=== PATIENT | male | born 1965 | race African-American/Black ===

== ENCOUNTER 2017-08-03 15:37 | Emergency (ER) | payer OTHER ==
--- NOTE | 2017-08-03 16:11 | UC ---
Ear Complaint HPI - HPI Summary HPI Summary: Pt presents with right ear fullness and sinus symptoms for 3 days. He tells me that about 3 days ago he developed sinus pain/pressure/congestion and right ear fullness and feeling like it needs to "pop". He has not taken anything OTC for this. Denies fever, chills, SOB, headache, dizziness, chest pain, abdominal pain , N/V/D/C. - History of Current Complaint Chief Complaint: UCRespiratory Stated Complaint: EAR PAIN Time Seen by Provider: 08/03/17 16:10 Hx Obtained From: Patient Onset/Duration: Gradual Onset Severity Initially: Mild Severity Currently: Mild Pain Intensity: 6 Pain Scale Used: 0-10 Numeric - Allergies/Home Medications Allergies/Adverse Reactions: Allergies Allergy/AdvReac Type Severity Reaction Status Date / Time No Known Allergies Allergy Verified 08/03/17 15:57 PMH/Surg Hx/FS Hx/Imm Hx Previously Healthy: Yes - Surgical History Surgical History: None - Social History Occupation: Employed Full-time Lives: With Family Alcohol Use: Occasionally Substance Use Type: None Smoking Status (MU): Light Every Day Tobacco Smoker Review of Systems Constitutional: Negative Skin: Negative Eyes: Negative ENT: Ear Ache, Sinus Congestion, Sinus Pain/Tenderness Respiratory: Negative Cardiovascular: Negative Gastrointestinal: Negative Neurological: Negative Psychological: Negative All Other Systems Reviewed And Are Negative: Yes Physical Exam Triage Information Reviewed: Yes Appearance: Well-Appearing, Well-Nourished Vital Signs: Initial Vital Signs Temp 98.3 F 08/03/17 15:54 Pulse 92 08/03/17 15:54 Resp 12 08/03/17 15:54 BP 170/101 08/03/17 15:54 Pulse Ox 99 08/03/17 15:54 Vital Signs Reviewed: Yes Eyes: Positive: Conjunctiva Clear, Other: - EOMI. PERRLA.. Negative: Conjunctiva Inflamed, Discharge ENT: Positive: Hearing grossly normal, Pharynx normal, Nasal congestion, Nasal drainage, TMs normal, Sinus tenderness, Uvula midline. Negative: Pharyngeal erythema, TM bulging, TM dull, TM red, Tonsillar swelling, Tonsillar exudate Neck: Positive: Supple, No Lymphadenopathy, Other: - NTTP. FROM. Respiratory: Positive: Chest non-tender, Lungs clear, Normal breath sounds, No respiratory distress, No accessory muscle use Cardiovascular: Positive: RRR, No Murmur, Pulses Normal Neurological: Positive: Alert, Other: - A&Ox3. 3 word recall, remote, recent memory, ability to follow 2-step directions, and attention intact. CN II XII grossly intact. Motor: good muscle tone, strength 5/5 throughout. Finger-to- nose are intact. Gait with normal base. Romberg: maintains balance, no pronator drift. Sensory: intact throughout Normal speech. No facial drooping. Psychological: Positive: Age Appropriate Behavior Skin: Negative: rashes Ear Complaint Course/Dx - Course Course Of Treatment: Sinusitis - Amoxicillin for 10 days. His BP was elevated at today's visit - it had improved moderately on manual recheck (150/90). He has seen his PCP for this a few months ago and says they told him it wasn't high enough to do anything. He denies headaches, vision changes, dizziness, ataxia, weakness, numbness, tingling, slurred speech, ringing in his ears, or balance disturbances. I advised him to follow up with his PCP within the next 4 weeks for recheck and potential treatment. If he develops any of the symptoms above, he should call 911 or go to the ED. - Differential Dx/Diagnosis Differential Diagnosis/HQI/PQRI: Otitis Externa, Otitis Media, Pharyngitis, URI Provider Diagnoses: Sinusitis Discharge - Discharge Plan Condition: Stable Disposition: HOME Prescriptions: Amoxicillin PO (*) [Amoxicillin 500 MG CAP*] 500 mg PO Q12H #20 cap Patient Education Materials: Sinusitis (ED) Referrals: No Primary Care Phys,NOPCP [Primary Care Provider] - Additional Instructions: If you develop a fever, SOB, chest pain, headache, dizziness, vision changes, new or worsening symptoms - please call your PCP or go to the ED. Your blood pressure was high at todays visit. Please see your primary provider within 4 weeks for recheck and re-evaluation.
[2017-08-03 16:49] VITALS: BP 150/90
== END 2017-08-03 17:00 | disposition home or self-care (01) ==
LOC: UCEAST 15:37
DX: J32.9 Chronic sinusitis, unspecified (principal); Z72.0 Tobacco use
CPT/HCPCS: 99212; G0463

== ENCOUNTER 2017-08-31 11:26 | Emergency (ER) | payer SELFPAY ==
[2017-08-31 11:40] VITALS: BP 168/94
--- NOTE | 2017-08-31 11:50 | UC ---
Respiratory Complaint HPI - HPI Summary HPI Summary: Pt presents with ongoing sinus and ear "pressure". I saw him on 08/03/17 for similar symptoms. At that time he had more sinus symptoms than he does at today' s visit. I placed him on amoxicillin, which he tells me he took for the 10 day course and experienced no relief of his symptoms. Today he complains of sinus pressure, b/l temporal headache, and b/l ear fullness with a dry cough. He has been taking sudafed for this, which he said does seem to help mildly - but his symptoms return and are constant. At his last visit, we discussed his elevated BP and need for a PCP; he was in the process of getting one, but lost his insurance at the first of this year. His BP is still elevated today. He denies fever, chills, change in vision, dizziness, SOB, chest pain, palpitations, CARBONE, abdominal pain, or n/v/d/c. - History of Current Complaint Chief Complaint: UCGeneralIllness Stated Complaint: RESP ISSUE Time Seen by Provider: 08/31/17 11:48 Hx Obtained From: Patient Onset/Duration: Gradual Onset Timing: Constant Severity Initially: Mild Severity Currently: Mild Pain Intensity: 4 Pain Scale Used: 0-10 Numeric - Allergies/Home Medications Allergies/Adverse Reactions: Allergies Allergy/AdvReac Type Severity Reaction Status Date / Time No Known Allergies Allergy Verified 08/31/17 11:40 Home Medications: Home Medications Pseudoephedrine TAB* [Sudafed TAB*] 2 tab PO DAILY 08/31/17 [History Confirmed 08/31/17] PMH/Surg Hx/FS Hx/Imm Hx - Surgical History Surgical History: None - Social History Occupation: Employed Full-time Lives: With Family Alcohol Use: Rare Substance Use Type: None Smoking Status (MU): Light Every Day Tobacco Smoker Amount Used/How Often: 2 cig/weekly Household Exposure Type: Cigarettes - Immunization History Most Recent Influenza Vaccination: NOT UTD Review of Systems Constitutional: Negative Skin: Negative Eyes: Negative ENT: Sinus Congestion, Other - Ear fullness Respiratory: Negative Cardiovascular: Negative Gastrointestinal: Negative Neurological: Headache - b/l temporal Psychological: Negative All Other Systems Reviewed And Are Negative: Yes Physical Exam Triage Information Reviewed: Yes Appearance: Well-Appearing, No Pain Distress, Well-Nourished Vital Signs: Initial Vital Signs Temp 99.1 F 08/31/17 11:27 Pulse 117 08/31/17 11:27 Resp 18 08/31/17 11:27 BP 168/94 08/31/17 11:27 Pulse Ox 100 08/31/17 11:27 Vital Signs Reviewed: Yes Eyes: Positive: Conjunctiva Clear, Other: - EOMI. PERRLA.. Negative: Conjunctiva Inflamed, Discharge ENT: Positive: Hearing grossly normal, Pharynx normal, TMs normal, Uvula midline. Negative: Pharyngeal erythema, Nasal congestion, Nasal drainage, TM bulging, TM dull, TM red, Tonsillar swelling, Tonsillar exudate, Muffled voice, Hoarse voice, Sinus tenderness Neck: Positive: Supple, Nontender, No Lymphadenopathy Respiratory: Positive: Chest non-tender, Lungs clear, Normal breath sounds, No respiratory distress, No accessory muscle use Cardiovascular: Positive: No Murmur, Pulses Normal, Tachycardia Abdomen Description: Positive: Nontender, No Organomegaly, Soft. Negative: Bruit, CVA Tenderness (R), CVA Tenderness (L), Distended, Guarding Bowel Sounds: Positive: Present Neurological: Positive: Alert, Other: - CNII-XII grossly intact. No focal deficits. Psychological: Positive: Age Appropriate Behavior Skin: Negative: rashes, significant lesion(s) UC Diagnostic Evaluation - Laboratory O2 Sat by Pulse Oximetry: 100 Respiratory Course/Dx - Course Course Of Treatment: I had a long discussion with the pt regarding his symptoms. I suspect this could be allergy or viral related, but cannot rule out the possibility of his elevated BP, cardiac, or intracranial pathology inducing the symptoms he is experiencing. I told him that I would like to perform an EKG and Head CT today and draw labwork - unfortunately, there are no antihypertensive medications available at our clinic. I told him that he also has the option of going to the Emergency Room for this workup and treatment of his BP. He declined to have any further testing/imaging performed due to a lack of insurance. For now, he wishes to try and treat his symptoms as if they are viral or allergy induced. He has a meeting this week with someone to help him get his insurance reinstated. I have also provided him the number and location of the [facility] [place] for further evaluation/treatment. Will try an rx for Flonase, claritin, and a neti pot. Advised to f/u with a PCP SANYA for further workup and treatment of his BP. Advised to stop taking sudafed. - Differential Dx/Diagnosis Provider Diagnoses: Ear fullness. Headache. Sinus pressure Discharge - Discharge Plan Condition: Stable Disposition: HOME Prescriptions: Fluticasone NASAL SPRAY 50MCG* [Flonase NASAL SPRAY 50MCG*] 2 spray BOTH NARES DAILY #1 btl LoraTADine TAB(NF) [Claritin 10 MG TAB(NF)] 10 mg PO DAILY #20 tab Meds/Orders/Equipment: Home Care: Equipment Location: None Selected Referrals: No Primary Care Phys,NOPCP [Primary Care Provider] - Additional Instructions: If you develop a fever, shortness of breath, chest pain, headache, dizziness, changes in vision, new or worsening symptoms - please call your PCP or go to the ED. Your blood pressure was high at todays visit. Please see your primary provider within 4 weeks for recheck and re-evaluation.
== END 2017-08-31 12:24 | disposition home or self-care (01) ==
LOC: UCEAST 11:26
DX: H93.8X9 Other specified disorders of ear, unspecified ear (principal); R51 Headache; J34.89 Other specified disorders of nose and nasal sinuses; F17.210 Nicotine dependence, cigarettes, uncomplicated
CPT/HCPCS: 99212; G0463

== ENCOUNTER 2018-05-28 17:11 | Emergency (ER) | payer SELFPAY ==
[2018-05-28 17:39] VITALS: BP 182/118
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
== END 2018-05-28 18:05 | disposition home or self-care (01) ==
LOC: UCEAST 17:11
DX: S16.1XXA Strain of muscle, fascia and tendon at neck level, initial encounter (principal); V44.6XXA Car passenger injured in collision with heavy transport vehicle or bus in traffic accident, initial encounter; Y92.410 Unspecified street and highway as the place of occurrence of the external cause; M62.838 Other muscle spasm; R03.0 Elevated blood-pressure reading, without diagnosis of hypertension; F17.210 Nicotine dependence, cigarettes, uncomplicated
CPT/HCPCS: 99213; G0463

== ENCOUNTER 2019-03-28 06:48 | Observation (INO) | payer OTHER ==
[2019-03-28 07:39] LABS: ABS Eosinophils 0.3 10^3/ul (0-0.6); ABS Lymphocytes 2.7 10^3/ul (1.0-4.8); ABS Neutrophils 7.2 10^3/ul (1.5-7.7); Eosinophil % 2.9 %; Hematocrit 44 % (42-52); Hemoglobin 15.1 g/dL (14.0-18.0); Lymphocyte % 23.6 %; Mean Corpuscular HGB Conc 34 g/dL (31-36); Mean Corpuscular Hemoglobin 32 pg (27-31); Mean Corpuscular Volume 92 fL (80-94); Mean Platelet Volume 7.2 fL (7.4-10.4); Platelet Count 305 10^3/uL (150-450); Red Blood Count 4.77 10^6 /uL (4.18-5.48); Red Cell Distribution Width 13 % (10-15); White Blood Count 11.2 10^3/uL (3.5-10.8)
[2019-03-28 07:45] LABS: INR 1.01 (0.82-1.09)
[2019-03-28 07:53] LABS: Albumin 4.1 g/dL (3.2-5.2); Albumin/Globulin Ratio 1.3 (1-3); BUN/Creatinine Ratio 13.9 (8-20); Calcium 8.8 mg/dL (8.6-10.3); EGFR African American 94.2 (>60); EGFR Non-African American 77.9 (>60); Globulin 3.1 g/dL (2-4); Potassium 3.9 mmol/L (3.5-5.0); Total Bilirubin 0.5 mg/dL (0.2-1.0); Total Protein 7.2 g/dL (6.4-8.9)
[2019-03-28 07:55] LABS: Troponin I 0.01 ng/mL (<0.04)
--- NOTE | 2019-03-28 08:46 | ED ---
Neurological HPI - HPI Summary HPI Summary: Patient is a 53-year-old male presenting to the ED with left-sided weakness and pain 2 days. He states on Thursday, 2 days ago, he was playing with his grandchildren when his "left side gave out on me." He states this has never happened to him before. Since that time, he states he has been unable to ambulate onto the left side due to weakness and pain. He specifically C/O pain to the hamstring, left sided medial ankle, heel and plantar surface of the foot 2 days and now is complaining of numbness and tingling throughout the left arm from the shoulder to the fingertips. He has been using a crutch since Thursday as he states he has been unable to bear weight. He denies any STEWARD, visual changes or disturbances, neck pain, jaw pain, R sided pain, CP or SOB. Denies any obvious neuro deficits including confusion or memory loss. PMhx includes: HTN (medication non-compliant) uses, "mild heart attack in 2007" Social hx: 3-4 cig per day smoker, alcohol use, obese family hx: Father heart dx at 73, mother of old age Medications: Aspirin daily No regular PCP - History of Current Complaint Chief Complaint: EDExtremityLower Stated Complaint: "LEFT SIDE GAVE OUT ON ME" PER PT Time Seen by Provider: 03/28/19 06:58 Hx Obtained From: Patient Onset/Duration: Sudden Onset Timing: Constant Onset Severity: Moderate Current Severity: Moderate Pain Intensity: 9 Pain Scale Used: 0-10 Numeric Character: Numbness/Tingling, Paresthesia, Motor Weakness Associated Signs and Symptoms: Positive: Unsteady Gait. Negative: Loss of Consciousness, Dizziness, Decreased Level of Consciousness, AMS, Impaired Speech - Allergy/Home Medications Allergies/Adverse Reactions: Allergies Allergy/AdvReac Type Severity Reaction Status Date / Time No Known Allergies Allergy Verified 03/28/19 06:51 PMH/Surg Hx/FS Hx/Imm Hx Previously Healthy: Yes - Immunization History Hx Pertussis Vaccination: No Immunizations Up to Date: Yes Infectious Disease History: No Infectious Disease History: Denies: Traveled Outside the [place] in Last 30 Days - Family History Known Family History: Positive: Hypertension - Social History Occupation: Employed Full-time Lives: With Family Alcohol Use: Occasionally Hx Substance Use: No Substance Use Type: Reports: None Hx Tobacco Use: Yes Smoking Status (MU): Light Every Day Tobacco Smoker Amount Used/How Often: 2 cig/weekly Review of Systems - ROS Summary Review of Systems Summary: Constitutional: The patient denies fever, STEWARD, sweats or chills. HEENT: Head: The patient denies headaches or dizziness. Eyes: The patient denies diplopia, blurry vision, eye pain, eye discharge, photophobia. Cardiovascular: The patient denies chest pain, palpitations, syncope, night cramps, or orthostasis. Respiratory: The patient denies cough, sputum production, hemoptysis, dyspnea, wheezing. Muscles: The patient endorses myalgia to hamstring, pain to plantar surface of foot. Joints: The patient denies arthralgia and/or arthritis. Neurologic: The patient denies headache, loss of consciousness, or seizure. Tingling sensation to the left upper extremity. Dermatologic: The patient denies hyperpigmentation, rash, or photosensitivity. No known tick bites per pt. Negative: Fever, Chills, Fatigue, Skin Diaphoresis Negative: Blurred Vision, Diplopia, Drainage Negative: Sore Throat, Ear Ache Negative: Palpitations, Chest Pain Negative: Shortness Of Breath, Cough Genitourinary: Negative Positive: no symptoms reported, see HPI Positive: Arthralgia, Myalgia. Negative: Decreased ROM, Edema Negative: Rash, Bruising Positive: Weakness, Paresthesia. Negative: Headache, Numbness, Syncope, Slurred Speech Psychological: Normal All Other Systems Reviewed And Are Negative: Yes Physical Exam - Summary Physical Exam Summary: Appearance: comfortable, pleasant, alert, obese, non-diaphoretic Skin: Soft dry skin, no lesions. Nailbeds pink with no cyanosis or clubbing. No petechia noted. Eyes: RUTH, EOMI, Conjunctiva pink with no redness or exudates. Mouth: Dentition without lesions. Moist mucosa Neck: Full range of motion. Palpable thyroid. Trachea at midline. No lymphadenopathy. Pulm: Chest symmetrical expansion. No deformities on posterior chest wall. Lungs clear to auscultation and percussion, without adventitious sounds. CV: No JVD. No deformities on anterior chest wall. Heart sounds. RRR. Normal S1 and single S2. No S3, S4, rubs, or murmurs. Carotids 2+ bilaterally without bruits. . GI: Bowel sounds WNL in all 4 quadrants. No pain on deep palpation of all 4 quadrants. Musculoskeletal: Flexion and extension of neck without limitations. ROM WNL in all extremities. No deformities noted. Pulses +2 bilaterally. Neuro: Motor strength is 5/5 in upper and 5/5 Right lower extremity/ 4/5 left lower extremity. Decreased sensation to the L lower extremity and L plantar surface of the foot. Stroke scale = 2. Psych: Logical, coherent Triage Information Reviewed: Yes Vital Signs On Initial Exam: Initial Vitals Temp Pulse Resp BP Pulse Ox 99.1 F 96 20 178/114 99 03/28/19 06:49 03/28/19 06:49 03/28/19 06:49 03/28/19 06:49 03/28/19 06:49 Vital Signs Reviewed: Yes Appearance: Positive: Well-Appearing, Well-Nourished Skin: Positive: Warm, Skin Color Reflects Adequate Perfusion Head/Face: Positive: Normal Head/Face Inspection Eyes: Positive: EOMI, RUTH, Conjunctiva Clear Neck: Positive: Supple, No Lymphadenopathy Respiratory/Lung Sounds: Positive: Clear to Auscultation, Breath Sounds Present Cardiovascular: Positive: RRR, Pulses are Symmetrical in both Upper and Lower Extremities Musculoskeletal: Positive: Pain @ - left sided pain to the hamstring, plantar surface of the foot and tingling to the L arm Neurological: Positive: Speech Normal Psychiatric: Positive: Affect/Mood Appropriate AVPU Assessment: Alert Diagnostics - Vital Signs Vital Signs Temp Pulse Resp BP Pulse Ox 03/28/19 07:38 86 144/84 99 03/28/19 07:00 98 03/28/19 06:49 99.1 F 96 20 178/114 99 - Laboratory Lab Results: Lab Results 03/28/19 03/28/19 03/28/19 Range/Units 07:27 07:27 07:27 WBC 11.2 H (3.5-10.8) 10^3/uL RBC 4.77 (4.18-5.48) 10^6 /uL Hgb 15.1 (14.0-18.0) g/dL Hct 44 (42-52) % MCV 92 (80-94) fL MCH 32 H (27-31) pg MCHC 34 (31-36) g/dL RDW 13 (10-15) % Plt Count 305 (150-450) 10^3/uL MPV 7.2 L (7.4-10.4) fL Neut % (Auto) 64.2 % Lymph % (Auto) 23.6 % [place] % (Auto) 8.9 % Eos % (Auto) 2.9 % Baso % (Auto) 0.4 % Absolute Neuts (auto) 7.2 (1.5-7.7) 10^3/ul Absolute Lymphs (auto) 2.7 (1.0-4.8) 10^3/ul Absolute Monos (auto) 1.0 H (0-0.8) 10^3/ul Absolute Eos (auto) 0.3 (0-0.6) 10^3/ul Absolute Basos (auto) 0.0 (0-0.2) 10^3/ul Absolute Nucleated RBC 0.0 10^3/ul Nucleated RBC % 0.0 INR (Anticoag Therapy) 1.01 (0.82-1.09) Sodium 136 (135-145) mmol/L Potassium 3.9 (3.5-5.0) mmol/L Chloride 106 (101-111) mmol/L Carbon Dioxide 23 (22-32) mmol/L Anion Gap 7 (2-11) mmol/L BUN 14 (6-24) mg/dL Creatinine 1.01 (0.67-1.17) mg/dL Est GFR ( Amer) 94.2 (>60) Est GFR (Non-Af Amer) 77.9 (>60) BUN/Creatinine Ratio 13.9 (8-20) Glucose 124 H (70-100) mg/dL Lactic Acid (0.5-2.0) mmol/L Calcium 8.8 (8.6-10.3) mg/dL Total Bilirubin 0.50 (0.2-1.0) mg/dL AST 20 (13-39) U/L ALT 21 (7-52) U/L Alkaline Phosphatase 84 (34-104) U/L Troponin I 0.01 (<0.04) ng/mL Total Protein 7.2 (6.4-8.9) g/dL Albumin 4.1 (3.2-5.2) g/dL Globulin 3.1 (2-4) g/dL Albumin/Globulin Ratio 1.3 (1-3) 03/28/19 Range/Units 07:27 WBC (3.5-10.8) 10^3/uL RBC (4.18-5.48) 10^6 /uL Hgb (14.0-18.0) g/dL Hct (42-52) % MCV (80-94) fL MCH (27-31) pg MCHC (31-36) g/dL RDW (10-15) % Plt Count (150-450) 10^3/uL MPV (7.4-10.4) fL Neut % (Auto) % Lymph % (Auto) % [place] % (Auto) % Eos % (Auto) % Baso % (Auto) % Absolute Neuts (auto) (1.5-7.7) 10^3/ul Absolute Lymphs (auto) (1.0-4.8) 10^3/ul Absolute Monos (auto) (0-0.8) 10^3/ul Absolute Eos (auto) (0-0.6) 10^3/ul Absolute Basos (auto) (0-0.2) 10^3/ul Absolute Nucleated RBC 10^3/ul Nucleated RBC % INR (Anticoag Therapy) (0.82-1.09) Sodium (135-145) mmol/L Potassium (3.5-5.0) mmol/L Chloride (101-111) mmol/L Carbon Dioxide (22-32) mmol/L Anion Gap (2-11) mmol/L BUN (6-24) mg/dL Creatinine (0.67-1.17) mg/dL Est GFR ( Amer) (>60) Est GFR (Non-Af Amer) (>60) BUN/Creatinine Ratio (8-20) Glucose (70-100) mg/dL Lactic Acid 1.5 (0.5-2.0) mmol/L Calcium (8.6-10.3) mg/dL Total Bilirubin (0.2-1.0) mg/dL AST (13-39) U/L ALT (7-52) U/L Alkaline Phosphatase (34-104) U/L Troponin I (<0.04) ng/mL Total Protein (6.4-8.9) g/dL Albumin (3.2-5.2) g/dL Globulin (2-4) g/dL Albumin/Globulin Ratio (1-3) Result Diagrams: 03/28/19 07:27 03/28/19 07:27 Lab Statement: Any lab studies that have been ordered have been reviewed, and results considered in the medical decision making process. NIH Scale - NIH Scale Level of Consciousness: Alert/Keenly Responsive Ask Patient the Month and His/Her Age: Both Correct Ask Pt to Open/Close Eyes and Video Editing Intern/Release Non-Paretic Hand: Both Correctly Best Gaze (Only Horizontal Eye Movement): Normal Visual Field Testing: No Visual Loss Motor Function - Right Arm: No Drift-Holds 10 Seconds Motor Function - Left Arm: No Drift-Holds 10 Seconds Motor Function - Right Leg: No Drift-Holds 10 Seconds Motor Function - Left Leg: Drifts LT 10 seconds Limb Ataxia-Must be out of Proportion to Weakness Present: Absent Sensory (Use Pinprick to Test Arms/Legs/Trunk/Face): Pinprick Less on Affected Best Language (Describe Picture, Name Items): No Aphasia Dysarthria (Read Several Words): Normal Extinction and Inattention: No Abnormality Re-Evaluation - Re-Evaluation First Eval Change: Unchanged - no change in sxs Second Eval Change: Worse - worse after NIH stroke scale assessment - pain to the hamstring Third Eval Change: Improved - improved with heat to the hamstring Course/Dx - Course Course Of Treatment: Patient presents with left-sided weakness and pain. On arrival into the ED, vital signs noted to be stable except for an elevated BP at 178/114. Patient arrives ambulating, however with a crutch favoring his right side. A recheck shows 144/84. No antihypertensive medications given. Patient appears well, nondiaphoretic and nontoxic in appearing. CT brain immediately obtained upon arrival as there is left-sided deficit noted, although this has been present [address] brain was read as negative, however Dr. Erwin recommends MRI. Discussed case with Dr. Ulrich, neuro who also recommends MRI. MRI w/wo contrast ordered. EKG shows T wave inversions in V5 and V6. ST elevations in V2 and V3. Depressions in lead 2. Last EKG on file from 2007. Patient continues to deny any CP. Trop 0.01. Labs unremarkable. Discussed EKG changes with Dr. Durand. Patient will be admitted for further workup of EKG changes as well as left-sided deficits. NIH = 2. Discussed all findings with patient who agrees to be admitted for further workup. - Differential Dx Differential Diagnoses Neuro: Positive: Other - muscle pain, paresthesia, acute ischemic stroke, NSTEMI - Diagnoses Provider Diagnoses: Left-sided muscle weakness, Paresthesia - Physician Notifications Discussed Care Of Patient With: Yossi Ulrich - Discussed case with Serg Rueda, Boni and Tima Instructed by Provider To: Admit As Inpatient Discharge - Sign-Out/Discharge Documenting (check all that apply): Patient Departure Patient Received Moderate/Deep Sedation with Procedure: No - Discharge Plan Condition: Fair Disposition: ADMITTED TO [facility] Referrals: Cristhian Lainez MD [Primary Care Provider] - - Billing Disposition and Condition Condition: FAIR Disposition: Admitted to [facility]
[2019-03-28 09:36] LABS: Urine Appearance Clear; Urine Bilirubin Negative (Negative); Urine Blood Negative (Negative); Urine Color Yellow; Urine Glucose Negative (Negative); Urine Ketones Negative (Negative); Urine Nitrite Negative (Negative); Urine Protein Negative (Negative); Urine Specific Gravity 1.021 (1.010-1.030); Urine Urobilinogen Negative (Negative)
[2019-03-28] MEDS ORDERED: HYDROcodone/ACETAMIN 5-325 MG* 1 TAB PO PRN (10:43)
--- NOTE | 2019-03-28 11:06 | ADMNOTE ---
Subjective Date of Service: 03/28/19 Interval History: ADMISSION HISTORY AND PHYSICAL EXAM: Allergies Allergy/AdvReac Type Severity Reaction Status Date / Time No Known Allergies Allergy Verified 03/28/19 06:51 Home Medications Medication Instructions Recorded Confirmed Type Cyclobenzaprine TAB* [Flexeril 10 mg PO DAILY PRN #7 tab 05/28/18 Rx TAB*] Ibuprofen 400 mg PO 05/28/18 History HPI: ON 03/26/19 while playing with his grandchild his L side got weak and he fell down and his L thigh hurt. It continued to hurt 03/26 and 03/27 and he came in today having to hop to get around. He hopped to the car and his drive him here. Family History: Findings - unremarkable. Social History: Findings - Smoker. No alcohol abuse. Lives with his who is his SDM. Works full-time. Past Medical History: Findings - wrist surgery 2003. Review of Systems - Measurements Intake and Output: Intake and Output Last 24 Hours 03/26/19 03/27/19 03/28/19 03/29/19 06:59 06:59 06:59 06:59 Weight 195 lb - Review of Systems Constitutional Symptoms: Negative: Weight Gain, Weight Loss, Weakness, Fatigue, Fever, Night Sweats, Unexplained Falls, Other Dermatology: Positive: Normal HEENT: Positive: Normal Eyes: Positive: Normal Thyroid: Positive: Normal Pulmonary: Positive: Normal Cardiology: Positive: Normal Gastroenterology: Positive: Normal Genital - Urinary: Positive: Normal Genitourinary - Male: Negative: Prostatism, Erectile Dysfunction, Family Hx of Prostate Cancer, Other Musculoskeletal: Positive: Other - Left thigh pain Endocrinology: Positive: Normal Hematologic/Lymphatic: Negative: Anemia, Easy Bruising, Hx Leukemia, Hx Lymphoma, Use of Anticoagulant, Use of Antiplatelet Drugs, Other Neurology: Positive: Normal Psychiatry: Positive: Normal Allergic/Immunologic: Negative: Hx Anaphylaxis, Hx Angioedema, Hx Environmental, Hx Seasonal, Asthma, Hx HIV, Immunocompromise, Swollen Glands LymphNodes, Other Objective Active Medications: Hydrocodone Bitart/Acetaminophen ([place] 5-325 Tab*) 1 tab PO Q4H PRN PRN Reason: PAIN - MODERATE Vital Signs - 8 hr 03/28/19 03/28/19 03/28/19 06:49 07:00 07:33 Temperature 99.1 F Pulse Rate 96 89 Respiratory 20 Rate Blood Pressure 178/114 164/101 (mmHg) O2 Sat by Pulse 99 98 98 Oximetry 03/28/19 03/28/19 03/28/19 07:38 07:43 08:00 Temperature Pulse Rate 86 89 71 Respiratory Rate Blood Pressure 144/84 (mmHg) O2 Sat by Pulse 99 98 96 Oximetry 03/28/19 03/28/19 03/28/19 08:03 08:33 09:00 Temperature Pulse Rate 93 72 71 Respiratory Rate Blood Pressure 171/101 154/120 (mmHg) O2 Sat by Pulse 98 97 97 Oximetry 03/28/19 03/28/19 03/28/19 09:03 09:33 10:00 Temperature Pulse Rate 89 65 65 Respiratory Rate Blood Pressure 171/119 168/101 (mmHg) O2 Sat by Pulse 98 99 98 Oximetry 03/28/19 03/28/19 03/28/19 10:03 10:33 10:55 Temperature Pulse Rate 68 81 Respiratory Rate Blood Pressure 159/113 182/113 164/106 (mmHg) O2 Sat by Pulse 98 97 Oximetry Oxygen Devices in Use Now: None Appearance: Alert, supine on Ed stretcher. Looks comfortable. Eyes: No Scleral Icterus Neck: NL Appearance and Movements; NL JVP, No Thyroid Enlargement, Masses Respiratory: Symmetrical Chest Expansion and Respiratory Effort, Clear to Auscultation, Clear to Percussion Cardiovascular: NL Sounds; No Murmurs; No JVD, RRR, No Edema, - Extremities: No Edema, No Clubbing, Cyanosis, - Skin: No Rash or Ulcers, No Nodules or Sclerosis, - Neurological: Alert and Oriented x 3, NL Sensation - ? 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 Can elevate both legs off bed well. L foot strong, ? limited by pain in thigh. Result Diagrams: 03/28/19 07:27 03/28/19 07:27 Additional Lab and Data: Lab Results 03/28/19 03/28/19 03/28/19 Range/Units 07:27 07:27 07:27 WBC 11.2 H (3.5-10.8) 10^3/uL RBC 4.77 (4.18-5.48) 10^6 /uL Hgb 15.1 (14.0-18.0) g/dL Hct 44 (42-52) % MCV 92 (80-94) fL MCH 32 H (27-31) pg MCHC 34 (31-36) g/dL RDW 13 (10-15) % Plt Count 305 (150-450) 10^3/uL MPV 7.2 L (7.4-10.4) fL Neut % (Auto) 64.2 % Lymph % (Auto) 23.6 % [place] % (Auto) 8.9 % Eos % (Auto) 2.9 % Baso % (Auto) 0.4 % Absolute Neuts (auto) 7.2 (1.5-7.7) 10^3/ul Absolute Lymphs (auto) 2.7 (1.0-4.8) 10^3/ul Absolute Monos (auto) 1.0 H (0-0.8) 10^3/ul Absolute Eos (auto) 0.3 (0-0.6) 10^3/ul Absolute Basos (auto) 0.0 (0-0.2) 10^3/ul Absolute Nucleated RBC 0.0 10^3/ul Nucleated RBC % 0.0 INR (Anticoag Therapy) 1.01 (0.82-1.09) Sodium 136 (135-145) mmol/L Potassium 3.9 (3.5-5.0) mmol/L Chloride 106 (101-111) mmol/L Carbon Dioxide 23 (22-32) mmol/L Anion Gap 7 (2-11) mmol/L BUN 14 (6-24) mg/dL Creatinine 1.01 (0.67-1.17) mg/dL Est GFR ( Amer) 94.2 (>60) Est GFR (Non-Af Amer) 77.9 (>60) BUN/Creatinine Ratio 13.9 (8-20) Glucose 124 H (70-100) mg/dL Lactic Acid (0.5-2.0) mmol/L Calcium 8.8 (8.6-10.3) mg/dL Total Bilirubin 0.50 (0.2-1.0) mg/dL AST 20 (13-39) U/L ALT 21 (7-52) U/L Alkaline Phosphatase 84 (34-104) U/L Troponin I 0.01 (<0.04) ng/mL Total Protein 7.2 (6.4-8.9) g/dL Albumin 4.1 (3.2-5.2) g/dL Globulin 3.1 (2-4) g/dL Albumin/Globulin Ratio 1.3 (1-3) 03/28/19 Range/Units 07:27 WBC (3.5-10.8) 10^3/uL RBC (4.18-5.48) 10^6 /uL Hgb (14.0-18.0) g/dL Hct (42-52) % MCV (80-94) fL MCH (27-31) pg MCHC (31-36) g/dL RDW (10-15) % Plt Count (150-450) 10^3/uL MPV (7.4-10.4) fL Neut % (Auto) % Lymph % (Auto) % [place] % (Auto) % Eos % (Auto) % Baso % (Auto) % Absolute Neuts (auto) (1.5-7.7) 10^3/ul Absolute Lymphs (auto) (1.0-4.8) 10^3/ul Absolute Monos (auto) (0-0.8) 10^3/ul Absolute Eos (auto) (0-0.6) 10^3/ul Absolute Basos (auto) (0-0.2) 10^3/ul Absolute Nucleated RBC 10^3/ul Nucleated RBC % INR (Anticoag Therapy) (0.82-1.09) Sodium (135-145) mmol/L Potassium (3.5-5.0) mmol/L Chloride (101-111) mmol/L Carbon Dioxide (22-32) mmol/L Anion Gap (2-11) mmol/L BUN (6-24) mg/dL Creatinine (0.67-1.17) mg/dL Est GFR ( Amer) (>60) Est GFR (Non-Af Amer) (>60) BUN/Creatinine Ratio (8-20) Glucose (70-100) mg/dL Lactic Acid 1.5 (0.5-2.0) mmol/L Calcium (8.6-10.3) mg/dL Total Bilirubin (0.2-1.0) mg/dL AST (13-39) U/L ALT (7-52) U/L Alkaline Phosphatase (34-104) U/L Troponin I (<0.04) ng/mL Total Protein (6.4-8.9) g/dL Albumin (3.2-5.2) g/dL Globulin (2-4) g/dL Albumin/Globulin Ratio (1-3) Assess/Plan/Problems-Billing Assessment: - Patient Problems (1) Left hemiparesis Current Visit: Yes Status: Acute Code(s): G81.94 - HEMIPLEGIA, UNSPECIFIED AFFECTING LEFT NONDOMINANT SIDE SNOMED Code(s): 296656243 Comment: Difficult to separate from his thigh pain. MRI brain, hip and L femur X-rays pending. Neuro consult requested. (2) Tobacco abuse Current Visit: Yes Status: Acute Code(s): Z72.0 - TOBACCO USE SNOMED Code( s): 669761125 Comment: Patient states he smokes 2 cigarettes per day. Pt advised to quit smoking and avoid second hand smoke. He declined NRT.
[2019-03-28] MEDS: tiZANidine TAB* 2 MG PO PRN (12:47)
--- NOTE | 2019-03-28 16:06 | CONS ---
CONSULTATION REPORT: DATE OF CONSULT: 03/28/19 PATIENT OF: Dr. Alfred and Dr. Lainez. HISTORY OF PRESENT ILLNESS: This is a 53-year-old right-handed man who 2 days ago while playing with his grandchild had sudden weakness in the left arm and leg and he collapsed with this. He said he had lost the power in both arm and leg, but without any headache, visual symptoms, numbness, speech problems, or any other symptoms. He says that the weakness persisted up until yesterday, but then it resolved. He said his walking was normal other than his left thigh pain. He is in good general health. When he came into the ER, he had pain of 9/10 in his left leg. PAST MEDICAL HISTORY: He does have hypertension and he is noncompliant and he had a mild heart attack in 2007. MEDICATIONS: 1. His only medicine at home is his cyclobenzaprine that he takes on an as- needed basis. 2. He is also on an aspirin daily. ALLERGIES: He is allergic to no meds. FAMILY HISTORY: His father with heart disease at 73. Mom of old age. SOCIAL HISTORY: He smokes 3 to 4 cigarettes per day. There is some alcohol use and obesity. REVIEW OF SYSTEMS: Negative in all 14 spheres other than HPI. PHYSICAL EXAM: Temperature 97.7, pulse 75, respirations 16, blood pressure 152/ 93. He was sleeping when I came in, but he was alert and oriented with normal speech and comprehension. Cranial nerves II through XII were intact with symmetric facies. No visual deficits. Fundi showed sharp discs. Motor exam revealed normal tone and strength. No pronator drift. He was somewhat limited in testing his left leg because of pain, but he had 5/5 hip flexion and good plantarflexion and dorsiflexion. He had muscle spasms in his left biceps femoris, and when I got him to stand, he could not bear weight because of pain behind his left leg. Reflexes were 1 and equal. Toes were equivocal to downgoing. Chest: Clear. Cardiovascular: Regular rate and rhythm. Abdomen: Soft with positive bowel sounds. DIAGNOSTIC STUDIES/LAB DATA: His CT scan was with no acute findings and was within normal limits. I reviewed this study. His labs include white count of 11.2, otherwise normal CBC. Normal INR. CMP normal other than glucose of 124. UA was negative. IMPRESSION AND PLAN: Salomon's acute problems related to his left leg pain that due to an injury he sustained in a fall; however, what he says is that he had significant weakness for about a day that precipitated the fall. That weakness is in his left arm and leg, it is unclear whether his face was involved, but there were no other symptoms associated with it such as numbness or other sensory symptoms or visual symptoms. If this was a left pure motor hemiparesis , it is possible that there could have been some lacunar infarct and he definitely should be on an aspirin now, and I would get an MRI scan and order an echo. With his story, he should also have fasting lipid profile done and an echo with bubble study. We can modify our recommendations in terms of his aspirin and Plavix once we get the MRI scan back, but I would have him on both for now. Thank you for sharing his case. [id number]/[facility] #: [id number] [place]
[2019-03-28] MEDS ORDERED: Gadoteridol* (CONTRAST) 279.3 MG/ML 10 ML IV ONE (16:23)
[2019-03-28] MEDS: Aspirin 81 mg CHEW TAB* 81 MG TAB.CHEW PO SCH (18:13)
[2019-03-28] MEDS: Clopidogrel TAB* 75 MG PO SCH (18:14)
[2019-03-29] MEDS: Aspirin 81 mg CHEW TAB* 81 MG TAB.CHEW PO SCH (08:13)
[2019-03-29] MEDS: Clopidogrel TAB* 75 MG PO SCH (08:13)
--- NOTE | 2019-03-29 08:33 | ECHO ---
*[facility]* [place] [address] Fax #: [phone] Transthoracic Echocardiogram Patient: Salomon Almaguer : 1965 Study Date: 03/29/2019 Age: 53 Gender: M HR: 79 bpm Height: 70 in /177.8 cm BSA: 2.11 m^2 Weight: 194.6 lb /88.5 kg BMI: 28 kg/m^2 *Senior Biostatistician/Group Leader: * Triny Mancilla [facility] *Referring Physician: * Marty Alfred *Reading Physician: * Maury Durand MD Indications: TIA. History: Risk factors: Current tobacco use. Hypertension. Conclusions Summary: - Left ventricle: The cavity size is normal. Wall thickness is moderately increased. Systolic function is normal. The estimated ejection fraction is 55-60%. Wall motion is normal; there are no regional wall motion abnormalities. - Right ventricle: Systolic function is normal. - Atrial septum: A PFO is not demonstrated by color Doppler or agitated saline contrast. - Mitral valve: There is no significant regurgitation. - Aortic valve: There is no evidence of stenosis. There is mild regurgitation. - Tricuspid valve: There is no significant regurgitation. - Pericardium, extracardiac: There is no significant pericardial effusion. - Pulmonary arteries: Systolic pressure can not be accurately estimated. - Study data: No prior study is available for comparison. Study data: Transthoracic echocardiogram. Procedure: Transthoracic echocardiography was performed. Image quality was good. A bubble study was performed. Complete 2D, spectral Doppler, and color flow Doppler. Location: Bedside. Patient status: Inpatient. Patient room number: 444 01. No prior study is available for comparison. Rhythm: Normal sinus rhythm. Findings Left ventricle: The cavity size is normal. Wall thickness is moderately increased. Systolic function is normal. The estimated ejection fraction is 55-60%. Wall motion is normal; there are no regional wall motion abnormalities. Doppler parameters are consistent with abnormal left ventricular relaxation (grade 1 diastolic dysfunction). Right ventricle: The cavity size is normal. Wall thickness is mildly increased. Systolic function is normal. Left atrium: The atrium is normal in size. Right atrium: The atrium is normal in size. Atrial septum: A PFO is not demonstrated by color Doppler or agitated saline contrast. Negative bubble study. Mitral valve: The leaflets are mildly thickened. There is no evidence of stenosis. There is no significant regurgitation. Aortic valve: The valve is probably trileaflet. The leaflets are normal thickness. There is no evidence of stenosis. There is mild regurgitation. Tricuspid valve: The leaflets are normal thickness. There is no evidence of stenosis. There is no significant regurgitation. Pulmonic valve: The leaflets are normal thickness. There is no evidence of stenosis. There is trace regurgitation. Aorta: Aortic root: The aortic root is appears normal. Ascending aorta: The ascending aorta is appears normal. Aortic arch: The aortic arch is upper normal in size. Pericardium: There is no significant pericardial effusion. Pulmonary arteries: Systolic pressure can not be accurately estimated. Systemic veins: Inferior vena cava: The vessel is normal in size. There is (>= 50%) respiratory change in the IVC dimension. Measurements Left ventricle Value Ref Aortic valve Value Ref ARLENE, LAX 4.4 cm 4.2 - 5.8 Jorge diam, ED 2.5 cm ---- ESD, LAX 2.7 cm 2.5 - 4.0 Peak v, S 1.73 m/sec ---- FS, LAX 27 % 25 - 43 VTI, S 30.7 cm ---- PW, ED, LAX (H) 1.5 cm 0.6 - 1.0 Mean grad, S 5.8 mm Hg ---- EF 53 % 52 - 72 Peak grad, S 11.9 mm Hg ---- E', lat jorge, TDI (L) 6.0 cm/sec >=10.0 LVOT/AV, VTI ratio 0.95 -- -- E/e', lat jorge, 15 AR peak v 4.8 m/sec ---- TDI AR decel time 1418 ms ---- E', med jorge, TDI (L) 6.0 cm/sec >=7.0 AR PHT 411 ms -- -- E/e', med jorge, 15 AR peak grad 90 mm Hg ---- TDI E', avg, TDI 6.0 cm/sec Mitral valve Value Ref E/e', avg, TDI (H) 15 <=14 Peak E 0.88 m/sec -- -- Peak A 1.03 m/sec ---- LVOT Value Ref Decel time 175 ms ---- Peak nora, S 1.47 m/sec Peak grad, D 3.1 mm Hg ---- VTI, S 29.2 cm Peak E/A ratio 0.85 ---- Peak grad, S 9 mm Hg Mean grad, S 4 mm Hg Pulmonic valve Value Ref Peak v, S 0.72 m/sec ---- Ventricular septum Value Ref Peak grad, S 2.1 mm Hg ---- IVS, ED (H) 1.5 cm 0.6 - 1.0 Aortic root Value Ref Right ventricle Value Ref Root diam 2.9 cm <4.2 ARLENE, LAX 2.3 cm ARLENE major ax, A4C (L) 3.1 cm 5.9 - 8.3 Ascending aorta Value Ref AAo AP diam, S 3.4 cm ---- Left atrium Value Ref AP dim, ES (H) 5.24 cm 3.00 - Aortic arch Value Ref 4.00 Arch diam 3.5 cm ---- ML dim, A4C 3.8 cm SI dim, A4C 5.8 cm Inferior vena cava Value Ref Vol/bsa, ES, 2-p 20 ml/m^2 16 - 34 Diam 1.5 cm ---- Right atrium Value Ref SI dim, ES 3.9 cm 3.4 - 5.3 ML dim, ES, A4C 3.5 cm 2.6 - 4.4 Estimated RAP 8 mm Hg Legend: (L) and (H) saranya values outside specified reference range. Prepared and electronically signed by Maury Durand MD 03/29/2019 08:33
[2019-03-29 08:44] LABS: HDL Cholesterol 35.4 mg/dL
[2019-03-29 09:18] LABS: HDL Cholesterol 34.6 mg/dL
[2019-03-29] MEDS: tiZANidine TAB* 2 MG PO PRN ×2 (10:19→17:49)
[2019-03-29 15:30] VITALS: BP 149/85
[2019-03-29] MEDS ORDERED: Atorvastatin* 20 MG TAB PO SCH (17:00)
--- NOTE | 2019-03-30 01:02 | DS ---
CC: Dr. Lainez; Dr. Ulrich * DISCHARGE SUMMARY: DATE OF ADMISSION: 03/28/19 DATE OF DISCHARGE: 03/29/19 PROVIDER: JIN Marquis. ATTENDING PHYSICIAN WHILE IN THE HOSPITAL: Dr. Lc Velasco * (dictated by JIN Marquis). PRIMARY CARE PHYSICIAN: Dr. Lainez. CONSULTING NEUROLOGIST: Dr. Ulrich. PRIMARY DIAGNOSES: 1. Transient ischemic attack. 2. Diastolic dysfunction. 3. Infrequent drop beats on telemetry, possible Mobitz I. SECONDARY DIAGNOSES: 1. Coronary artery disease. 2. Hypertension. STUDIES WHILE IN THE HOSPITAL: Brain MRI, impression: No acute or significant intracranial abnormality. Mild chronic small vessel disease is likely. Transthoracic echocardiogram, EF is 60%. Bubble study is negative. Doppler parameters are consistent with abnormal left ventricular relaxation. Pertinent lab data: Fasting LDL 87. HISTORY OF PRESENT ILLNESS/HOSPITAL COURSE: Salomon Almaguer is a 53-year-old black male with a past medical history significant for coronary artery disease and hypertension, who presented to the emergency department due to some left- sided hemiparesis. Please see admission note dictated by Clovis Alfred MD on 08/04 for further details and consultation report from Dr. Ulrich for further details. In brief, the patient experienced a sudden onset of left arm and left leg weakness and he collapsed. Afterwards, he was experiencing left hip and thigh and left shoulder pain. On date of my evaluation, the patient feels his shoulder pain has improved, but still present. The patient does not have hip pain, but does complain of left "Rosalino horses" in his thigh. The patient was evaluated by Dr. Ulrich during his stay and the findings were discussed with him and the patient was started on aspirin and Plavix on the date of admission. Ultimately, on the date of discharge the patient is feeling well. His left- sided weakness has resolved. He was with physical therapy in which they showed he may need some outpatient physical therapy relating to his left leg pain from his fall. Otherwise, he has no sensation changes, no visual changes. No headache or difficulty breathing. The patient was monitored on telemetry during his hospital stay, which did demonstrate some drop beats on his telemetry. This was discussed with Dr. Durand , who recommended outpatient followup. This is not contributory to his TIA presentation. PHYSICAL EXAMINATION: An overweight, black male sitting comfortably in bed, appearing in no acute distress, I was at bedside. Eyes: PERRL. Sclerae anicteric. ENT: Mucous membranes are moist. Lungs: Clear to auscultation throughout. Cardio: Regular rate and rhythm without murmurs, rubs, or gallops. Abdomen: Soft, nontender, nondistended. Extremities: No clubbing, cyanosis or edema. Neuro: Sensation to light touch is intact throughout. Strength is 5/5 in all extremities. No focal deficits. The patient is alert and oriented x3. Skin: Warm, dry, and intact. DISCHARGE PLAN: Diet: Heart-healthy diet. Activity: The patient may return to normal activity as tolerated. The patient was referred to outpatient physical therapy as recommended by Physical Therapy in this hospital. The patient is advised to follow up with his primary care provider within 7 to 10 days regarding this hospitalization. At this time, it may be a benefit for the patient to have sleep study evaluation arranged as the patient describes snoring, which may be contributing to his cardiovascular risk factors. Additionally, a Holter monitor should be scheduled as the patient was having dropped beats infrequently during his hospital stay. The patient is advised to return to the emergency department if he is experiencing sudden weakness, numbness, visual changes, slurred speech, facial asymmetry, or some gait disturbance. Additionally, the patient should have an expedited outpatient CTA head/neck or ultrasound of the carotids. DISCHARGE MEDICATIONS: 1. Zanaflex 2 mg p.o. q.6 hours p.r.n. muscle spasms. 2. Plavix 75 mg p.o. daily x3 days and discontinue. 3. Atorvastatin 20 mg p.o. daily. 4. Aspirin 81 mg p.o. daily. 5. Amlodipine 2.5 mg p.o. daily. Continued Home Medications: Not applicable. CONDITION ON DISCHARGE: Stable. DISPOSITION: Home. TIME SPENT: Approximately 45 minutes were spent on this discharge. JIN MARQUIS [id number]/CPS #: [id number] MTDD
== END 2019-03-29 17:50 | disposition home or self-care (01) ==
LOC: ED 06:48 → MEDTELE 10:35
PROVIDERS: ADMIT Internal Medicine; ATTEND Internal Medicine
DX: G45.9 Transient cerebral ischemic attack, unspecified (principal); G81.94 Hemiplegia, unspecified affecting left nondominant side; I11.0 Hypertensive heart disease with heart failure; I50.30 Unspecified diastolic (congestive) heart failure; I25.10 Atherosclerotic heart disease of native coronary artery without angina pectoris; Z79.82 Long term (current) use of aspirin; Z79.899 Other long term (current) drug therapy; I25.2 Old myocardial infarction; F17.210 Nicotine dependence, cigarettes, uncomplicated; R94.31 Abnormal electrocardiogram [ECG] [EKG]
CPT/HCPCS: 36415; 70450; 70553; 80053; 80061; 81003; 83605; 84484; 85025; 85610; 93005; 93306; 99284; 99406; A9270-GY; A9579; G0378; G8978-GP-CJ; G8979-GP-CH

== ENCOUNTER 2019-09-08 13:03 | Emergency (ER) | payer OTHER ==
--- NOTE | 2019-09-08 13:23 | ED ---
Back Pain - HPI Summary HPI Summary: Patient is a 54 y/o M w/ Hx of sciatica, HTN, TIA who presents to [facility] with complaints of right lower back pain with radiation of pain down his right leg. Pain down his leg is characterized as a shooting and electrical sensation. There is radiation of pain down to his ankle. He states that this pain has been present for the past few months. Patient reports that this presentation of Sx is dissimilar to his sciatica episodes, noting that he cannot walk with his sciatica but he can presently. He also notes that this pain has been present longer than his sciatica episodes. He states that he had an appointment with his medical provider for this, but states that the pain has gotten worse and he could not wait until the date of his appointment. He has been taking ibuprofen and applying hot pads with no relief. Patient notes that he has been experiencing intermittent left arm numbness and does not characterize this as acute. No other numbness noted, he reports no tingling/numbness at his pelvic area. No fever, retention, or incontinence noted. Patient notes that he had an MRI of his back a few months ago during his TIA episode as he had experienced a fall at the time. No PMHx of diabetes but he does have FMHx of diabetes. Patient is on ASA and BP medication. No Hx of IV drug abuse, patient is a light smoker and denies alcohol consumption. No PSHx noted. NKDA reported. 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 Home medications and allergies are reviewed. - History of Current Complaint Chief Complaint: EDBackInjuryPain Stated Complaint: BACK PAIN PER PT Time Seen by Provider: 09/08/19 13:08 Hx Obtained From: Patient Onset/Duration: Lasting Weeks, Still Present Onset/Duration: Started Weeks Ago, Still Present, Worse Since Timing: Constant, Lasting Weeks Back Pain Location: Is Discrete @ - right lower back, Radiates To - RLE Severity Currently: Severe Pain Intensity: 8 Pain Scale Used: 0-10 Numeric Character: Spasmodic - shooting and electrical sensation Alleviating Symptom(s): Nothing Associated Signs And Symptoms: Positive: Numbness - left arm, not acute, Other - negative - urinary retention. Negative: Fever, Tingling, Bladder Incontinence , Bowel Incontinence - Allergies/Home Medications Allergies/Adverse Reactions: Allergies Allergy/AdvReac Type Severity Reaction Status Date / Time No Known Allergies Allergy Verified 03/28/19 06:51 PMH/Surg Hx/FS Hx/Imm Hx Cardiovascular History: Reports: Hx Hypertension Denies: Hx Pacemaker/ICD Sensory History: Reports: Hx Contacts or Glasses - reading glasses Denies: Hx Hearing Aid Opthamlomology History: Reports: Hx Contacts or Glasses - reading glasses Psychiatric History: Denies: Hx Panic Disorder Infectious Disease History: No Infectious Disease History: Denies: Traveled Outside the [place] in Last 30 Days - Family History Known Family History: Positive: Hypertension, Diabetes - Social History Alcohol Use: None Hx Substance Use: No Substance Use Type: Reports: None Hx Tobacco Use: Yes Smoking Status (MU): Light Every Day Tobacco Smoker Type: Cigarettes Amount Used/How Often: 2 cig/weekly Have You Smoked in the Last Year: Yes Review of Systems Negative: Fever Genitourinary: Other - negative - urinary retention Negative: incontinence Musculoskeletal: Other - positive - back pain with radiation to RLE Positive: Numbness - of left arm, not acute . Negative: Paresthesia All Other Systems Reviewed And Are Negative: Yes Physical Exam - Summary Physical Exam Summary: Constitutional: Well-developed, Well-nourished, Alert. (-) Distressed Skin: Warm, Dry HENT: Normocephalic; Atraumatic Eyes: Conjunctiva normal Neck: Musculoskeletal ROM normal neck. (-) JVD, (-) Stridor, (-) Tracheal deviation Cardio: Rhythm regular, rate normal, Heart sounds normal; Intact distal pulses; Radial pulses are 2+ and symmetric. (-) Murmur Pulmonary/Chest wall: Effort normal. (-) Respiratory distress, (-) Wheezes, (-) Rales Abd: Soft, (-) tenderness, (-) Distension, (-) Guarding, (-) Rebound Musculoskeletal: Tenderness to the right lateral lower back, worse just superior to posterior superior iliac crest. He is able to ambulate with normal gait on both toes and heels. Negative straight leg raise test bilaterally, sensation intact distally. (-) Edema Lymph: (-) Cervical adenopathy Neuro: Alert, Oriented x3 Psych: Mood and affect Normal Triage Information Reviewed: Yes Vital Signs On Initial Exam: Initial Vitals Temp Pulse Resp BP Pulse Ox 98.2 F 105 18 156/110 97 09/08/19 13:03 09/08/19 13:03 09/08/19 13:03 09/08/19 13:03 09/08/19 13:03 Vital Signs Reviewed: Yes Procedures - Sedation Patient Received Moderate/Deep Sedation with Procedure: No Diagnostics - Vital Signs Vital Signs Temp Pulse Resp BP Pulse Ox 09/08/19 13:03 98.2 F 105 18 156/110 97 - Laboratory Lab Statement: Any lab studies that have been ordered have been reviewed, and results considered in the medical decision making process. Back Pain Course/Dx - Course Course Of Treatment: Patient is here with pain in his right back that radiates into his right leg periodically. Patient's had similar pain in the past on his left leg. Patient has no red flag symptoms of lower back pain and does not need an emergent MRI. Patient is able walk with a normal gait. Patient has a normal neurologic exam. Patient was discharged on a five-day course of steroids , Flexeril, and instructions to follow-up with his PCP for PT referral - Diagnoses Provider Diagnoses: Lower back pain Discharge ED - Sign-Out/Discharge Documenting (check all that apply): Patient Departure - DISCHARGE - Discharge Plan Condition: Stable Disposition: HOME Prescriptions: Cyclobenzaprine TAB* [Flexeril 10 MG TAB*] 10 mg PO BID PRN #12 tab PRN Reason: back pain predniSONE 20 mg TAB [Deltasone 20 MG TAB*] 40 mg PO DAILY 4 Days #8 tab Patient Education Materials: Back Pain (ED) Referrals: Cristhian Lainez MD [Primary Care Provider] - 3 Days Additional Instructions: PLEASE FOLLOW UP WITH YOUR PRIMARY CARE PHYSICIAN TO GET A REFERRAL TO PHYSICAL THERAPY. RETURN TO ED IF YOU HAVE DIFFICULTY GOING TO THE BATHROOM, DIFFICULTY CONTROLLING YOUR URINATION OR BOWEL MOVEMENTS, NUMBNESS BETWEEN YOUR PENIS AND RECTAL AREA, OR ANY OTHER CONCERNING SYMPTOMS. - Billing Disposition and Condition Condition: STABLE Disposition: Home - Attestation Statements Document Initiated by Scribe: Yes Documenting Scribe: ABEL BREWER Provider For Whom Helen is Documenting (Include Credential): GAMALIEL CHESTER MD Scribe Attestation: ABEL Quintana, scribed for GAMALIEL CHESTER MD on 09/08/19 at 1657. Scribe Documentation Reviewed: Yes Provider Attestation: The documentation as recorded by the ABEL medrano accurately reflects the service I personally performed and the decisions made by me, GAMALIEL CHESTER MD Status of Scribe Document: Viewed
[2019-09-08 13:47] VITALS: BP 169/102
== END 2019-09-08 13:53 | disposition home or self-care (01) ==
LOC: ED 13:03
DX: M54.5 Low back pain (principal); I10 Essential (primary) hypertension; F17.210 Nicotine dependence, cigarettes, uncomplicated; Z86.73 Personal history of transient ischemic attack (TIA), and cerebral infarction without residual deficits; Z79.82 Long term (current) use of aspirin; Z79.899 Other long term (current) drug therapy
CPT/HCPCS: 99282; J7512